=== PATIENT | female | born 1950 | race Hispanic/Latino ===

== ENCOUNTER → 2017-08-03 | Outpatient (CLI) | payer MEDICARE, OTHER ==
[~2017-08-03] MED LIST: GABAPENTIN300 MG PO; HYDROCHLOROTHIA25 MG PO; LISINOPRIL2.5 MG PO; METFORMIN HCL500 MG PO; PANTOPRAZOLE SO40 MG PO; SIMVASTATIN20 MG PO; ZOFRAN ODT4 MG PO
--- NOTE | 2017-08-03 16:27 | Diagnostic Imaging Report ---
Left neck lymph node biopsy 08/03/2017 Pre-Procedure Diagnosis: Left neck mass Post-procedure Diagnosis:Left neck mass Liner Inserter: Jonathan Camarillo Senior Project Leader/Team Lead: None Sedation: None. Heart rate and oxygen saturation were monitored in real-time. Blood pressure was measured in 5 minute increments. 1% lidocaine was used for local anesthesia. Estimate blood loss: <5 mL Blood administered: None Complications: None Implants/Grafts: None Specimen: 22-gauge FNA x4; 18-gauge 2 cm core biopsy x3 Procedure: Informed consent was obtained and the patient placed supine. A timeout was performed. Preliminary ultrasound of the left neck was performed. The left neck was prepped and draped in standard sterile fashion. Using real-time ultrasound guidance a 19-gauge needle was advanced into the left neck hypoechoic lymph node overlying the mandibular angle. An image was stored in the electronic medical record. 4 22-gauge FNA and 3 18-gauge 2 cm core biopsy specimens were obtained, each with images saved in the electronic medical record. Specimens were submitted to pathology. Findings: Hypoechoic left neck lymph node conglomerates measuring up to 2.7 x 1.3 cm in diameter. Impression: Successful left neck lymph node biopsy. This report was generated with voice-recognition technology. Errors in diagnostic medical sonographer can occur. Please interpret accordingly and contact a radiologist if there are any questions regarding the report. Signed by: Dr. Deshawn Camarillo M.D. on 08/03/2017 4:24 PM
--- NOTE | 2017-08-03 16:27 | Diagnostic Imaging Report ---
Left neck lymph node biopsy 08/03/2017 Pre-Procedure Diagnosis: Left neck mass Post-procedure Diagnosis:Left neck mass Vice President Of Product Marketing: Jonathan Camarillo Alcohol And Drug Counselor: None Sedation: None. Heart rate and oxygen saturation were monitored in real-time. Blood pressure was measured in 5 minute increments. 1% lidocaine was used for local anesthesia. Estimate blood loss: <5 mL Blood administered: None Complications: None Implants/Grafts: None Specimen: 22-gauge FNA x4; 18-gauge 2 cm core biopsy x3 Procedure: Informed consent was obtained and the patient placed supine. A timeout was performed. Preliminary ultrasound of the left neck was performed. The left neck was prepped and draped in standard sterile fashion. Using real-time ultrasound guidance a 19-gauge needle was advanced into the left neck hypoechoic lymph node overlying the mandibular angle. An image was stored in the electronic medical record. 4 22-gauge FNA and 3 18-gauge 2 cm core biopsy specimens were obtained, each with images saved in the electronic medical record. Specimens were submitted to pathology. Findings: Hypoechoic left neck lymph node conglomerates measuring up to 2.7 x 1.3 cm in diameter. Impression: Successful left neck lymph node biopsy. This report was generated with voice-recognition technology. Errors in valve inspector can occur. Please interpret accordingly and contact a radiologist if there are any questions regarding the report. Signed by: Dr. Deshawn Camarillo M.D. on 08/03/2017 4:24 PM
== END ==
LOC: US 12:45
PROVIDERS: ATTEND Otolaryngology
DX: R22.1 Localized swelling, mass and lump, neck (principal)
CPT/HCPCS: 10022; 38510; 76942; 88112; 88172; 88173; 88304; 88305

== ENCOUNTER 2018-04-12 05:03 | Observation (INO) | payer MEDICARE, OTHER ==
[2018-04-08 09:10] LABS: BASOPHILS # (AUTO) 0.1 (0.0-0.1); EOSINOPHILS # (AUTO) 0.3 (0.0-0.4); EOSINOPHILS % 2.9 % (0.0-6.0); HEMATOCRIT 42.6 % (34.2-44.1); HEMOGLOBIN 14.2 g/dL (12.0-16.0); LYMPHOCYTES # (AUTO) 3.3 (1.0-3.2); LYMPHOCYTES % 31.8 % (18.0-39.1); MEAN CORPUSCULAR HEMOGLOBIN 29.8 pg (28-32); MEAN CORPUSCULAR HGB CONC 33.3 g/dL (31-35); MEAN CORPUSCULAR VOLUME 89.5 fL (81-99); MONOCYTES # (AUTO) 0.5 (0.2-0.8); MONOCYTES % 5.1 % (4.4-11.3); NEUTROPHILS # (AUTO) 6.1 (2.1-6.9); PLATELET COUNT 341 x10e3/uL (140-360); RED BLOOD COUNT 4.76 x10e6/uL (3.6-5.1); RED CELL DISTRIBUTION WIDTH 13.6 % (11.7-14.4)
[2018-04-08 09:26] LABS: ANION GAP 17.2 mmol/L (8-16); BLOOD UREA NITROGEN 11 mg/dL (7-26); BUN/CREATININE RATIO 13 (6-25); CALCIUM 10.1 mg/dL (8.4-10.2); CARBON DIOXIDE 24 mmol/L (22-29); CHLORIDE 101 mmol/L (98-107); CREATININE, SERUM 0.82 mg/dL (0.57-1.11); EST GLOMERULAR FILTRATION RATE > 60 ML/MIN (60-); GLUCOSE 107 mg/dL (74-118); POTASSIUM 4.2 mmol/L (3.5-5.1); SODIUM 138 mmol/L (136-145)
--- NOTE | 2018-04-08 09:32 | Diagnostic Imaging Report ---
EXAMINATION: PA and lateral views of the chest. COMPARISON: None CLINICAL HISTORY: Preoperative evaluation for parotid surgery DISCUSSION: Lines/tubes: None. Lungs: The lungs are well inflated and clear. No pneumonia or pulmonary edema. Pleura: No pleural effusion or pneumothorax. Heart and mediastinum: The cardiomediastinal silhouette is normal. Bones and soft tissues: No acute bony abnormalities. IMPRESSION: No acute cardiopulmonary abnormalities. Signed by: Dr. Tom Whipple M.D. on 04/08/2018 9:29 AM
[~2018-04-12] VITALS: Ht 157.5 cm; Wt 106.8 kg
[~2018-04-12 05:03] MED LIST changes: +GABAPENTIN400 MG PO
--- OUTSIDE RECORDS SUMMARY | 2018-04-12 05:05 | XMS REPORT ---
Author [facility] Address Unknown Phone Unavailable Care Team Providers Care Cemetery Warden Name Role Phone EVAN ELOY Unavailable Unavailable Payers Payer Name Policy Type Policy Number Effective Date Expiration Date Problems This patient has no known problems. Allergies, Adverse Reactions, Alerts This patient has no known allergies or adverse reactions. Medications This patient has no known medications. Results Test Description Test Time Test Comments Text Results Atomic Results Result Comments CHEST 2 VIEWS 2018-04-08 09:28:00 [facility] [address] [place] [address] Patient Name: NATALIIA MARIE MR #: [id number] : 1950 Age/Sex: 68/F Req #: [id number] Adm Physician: Ordered by: EVAN CHURCH, ELOY CHURCH Report #: [id number] Location: OR Room/Bed: Procedure: [id number] DX/CHEST 2 VIEWS Exam Date: 04/08/18 Exam Time: 0900 REPORT STATUS: Signed EXAMINATION: PA and lateral views of the chest. COMP ARISON: None CLINICAL HISTORY: Preoperative evaluation for parotid surgery DISCUSSION: Lines/tubes: None. Lungs: The lungs are well inflated and clear. No pneumonia or pulmonary edema. Pleura: No pleural effusion or pneumothorax. Heart and mediastinum: The cardiomediastinal silhouette is normal. Bones and soft tissues: No acute bony abnormalities. IMPRESSION: No acute cardiopulmonary abnormalities. Signed by: Dr. Debbie Ray M.D. on 04/08/2018 9:29 AM Dictated By: DEBBIE RAY MD 8 Transcribed By: ADIS on 04/08/18928 COPY TO: ELOY GORDON WITH IMAGE GUIDANCE [place] [address] Patient Name: NATALIIA MARIE MR #: [id number] : 1950 Age/Sex: 67/F Acct #: [id number] Req #: [id number] Adm Physician: Ordered by: ELOY GORDON MD, MD Report #: [id number] Location: Room/Bed: Procedure: [id number] IR/FNA WITH IMAGE GUIDANCE Exam Date: 08/03/17 Exam Time: 1 REPORT STATUS: Signed Left neck lymph node biopsy 08/03/2017 Pre-Procedure Diagnosis: Left neck mass Post-procedure Diagnosis:Left neck mass Assistant Professor Of Theater: Jonathan Camarillo Card Tender: None Sedation: None. Heart rate and oxygen saturation were monitored in real-time. Blood pressure was measured in 5 minute increments. 1% lidocaine was used for local anesthesia. Estimate blood loss: <5 mL Blood administered: None Complications: None Implants/Grafts: None Specimen: 22-gauge FNA x4; 18-gauge 2 cm core biopsy x3 Procedure: Informed consent was obtained and the patient placed supine. A timeout was performed. Preliminary ultrasound of the left neck was performed. The left neck was prepped and draped in standard sterile fashion. Using real-time ultrasound guidance a 19-gauge needle was advanced into the left neck hypoechoic lymph node overlying the mandibular angle. An image was stored in the electronic medical record. 4 22-gauge FNA and 3 18-gauge 2 cm core biopsy specimens were obtained, each with images saved in the electronic medical record. Specimens were submitted to pathology. Findings: Hypoechoic left neck lymph node conglomerates measuring up to 2.7 x 1.3 cm in diameter. Impression: Successful left neck lymph node biopsy. This report was generated with voice-recognition technology. Errors in dyeing machine tender can occur. Please interpret accordingly and contact a radiologist if there are any questions regarding the report. Signed by: Dr. Eloy Camarillo M.D. on 08/03/2017 4:24 PM Dictated By: ELOY CAMARILLO MD Transcribed By: ADIS on 08/03/171623 COPY TO: ELOY GORDON BIOPSY LYMPH NODE [place] [address] Patient Name: NATALIIA MARIE MR #: [id number] : 1950 Age/Sex: 67/F Req #: [id number] [facility] Physician: Ordered by: ELOY GORDON MD, MD Report #: [id number] Location: Room/Bed: Procedure: [id number] IR/BIOPSY LYMPH NODE Exam Date: 08/03/17 Exam Time: 1331 REPORT STATUS: Signed Left neck lymph node biopsy 08/03/2017 Pre-Procedure Diagnosis: Left neck mass Post-procedure Diagnosis:Left neck mass Assistant Professor Of Theater: Jonathan Camarillo Card Tender: None Sedation: None. Heart rate and oxygen saturation were monitored in real-time. Blood pressure was measured in 5 minute increments. 1% lidocaine was used for local anesthesia. Estimate blood loss: <5 mL Blood administered: None Complications: None Implants/Grafts: None Specimen: 22-gauge FNA x4; 18-gauge 2 cm core biopsy x3 Procedure: Informed consent was obtained and the patient placed supine. A timeout was performed. Preliminary ultrasound of the left neck was performed. The left neck was prepped and draped in standard sterile fashion. Using real-time ultrasound guidance a 19-gauge needle was advanced into the left neck hypo echoic lymph node overlying the mandibular angle. An image was stored in the electronic medical record. 4 22-gauge FNA and 3 18-gauge 2 cm core biopsy specimens were obtained, each with images saved in the electronic medical record. Specimens were submitted to pathology. Findings: Hypoechoic left neck lymph node conglomerates measuring up to 2.7 x 1.3 cm in diameter. Impression: Successful left neck lymph node biopsy. This report was generated with voice-recognition technology. Errors in dyeing machine tender can occur. Please interpret accordingly and contact a radiologist if there are any questions regarding the report. Signed by: Dr. Eloy Camarillo M.D. on 08/03/2017 4:24 PM Dictated By: ELOY CAMARILLO MD 162 Transcribed By: ADIS on 08/03/17 1624 COPY TO: ELOY GORDON GUIDANCE FOR BIOPSY [place] [address] Patient Name: NATALIIA MARIE MR #: [id number] : 1950 Age/Sex: 67/F Acct #: [id number] Req #: [id number] Adm Physician: Ordered by: ELOY GORDON MD, MD Report #: [id number] Location: Room/Bed: Procedure: [id number] US/US GUIDANCE FOR BIOPSY Exam Date: 08/03/17 Exam Time: 1331 REPORT STATUS: Signed Left neck lymph node biopsy 08/03/2017 Pre-Procedure Diagnosis: Left neck mass Post-procedure Diagnosis:Left neck mass Assistant Professor Of Theater: Jonathan Camarillo Card Tender: None Sedation: None. Heart rate and oxygen saturation were monitored in real-time. Blood pressure was measured in 5 minute increments. 1% lidocaine was used for local anesthesia. Estimate blood loss: <5 mL Blood administered: None Complications: None Implants/Grafts: None Specimen: 22-gauge FNA x4; 18-gauge 2 cm core biopsy x3 Procedure: Informed consent was obtained and the patient placed supine. A timeout was performed. Preliminary ultrasound of the left neck was performed. The left neck was prepped and draped in standard sterile fashion. Using real-time ultrasound guidance a 19-gauge needle was advanced into the left neck hypoechoic lymph node overlying the mandibular angle. An image was stored in the electronic medical record. 4 22-gauge FNA and 3 18-gauge 2 cm core biopsy specimens were obtained, each with images saved in the electronic medical record. Specimens were submitted to pathology. Findings: Hypoechoic left neck lymph node conglomerates measuring up to 2.7 x 1.3 cm in diameter. Impression: Successful left neck lymph node biopsy. This report was generated with voice-recognition technology. Errors in dyeing machine tender can occur. Please interpret accordingly and contact a radiologist if there are any questions regarding the report. Signed by: Dr. Eloy Camarillo M.D. on 08/03/2017 4:24 PM Dictated By: ELOY CAMARILLO MD [id number] Transcribed By: ADIS on 08/03/17 3045 COPY TO: ELOY GORDON
[2018-04-12] MEDS ORDERED: EPINEPHRINE HCL 1:1000 1ML 1 MG/ML AMP ONE (06:27)
[2018-04-12] MEDS ORDERED: SODIUM CHLORIDE 0.9% 50ML 50 ML ONE (06:28)
--- NOTE | 2018-04-12 10:50 | Operative Report ---
DATE OF PROCEDURE: April 12, 2018 PREOPERATIVE DIAGNOSIS: Left parotid gland mass. POSTOPERATIVE DIAGNOSIS: Left parotid gland mass. PROCEDURE: Left superficial parotidectomy with preservation of facial nerve with nerve integrity monitor (NIM). SIGNIFICANT FINDINGS: Approximately 3-4 cm mass in the inferior portion of the left parotid gland. Frozen section analysis reveals intraparotid lymph node. HYDROELECTRIC MACHINERY MECHANIC HELPER: Ainsley Lyles M.D. ANESTHESIA: General endotracheal tube anesthesia. SPECIMENS REMOVED: Left inferior superficial parotid gland. ESTIMATED BLOOD LOSS: 40 mL. COMPLICATIONS: None. INDICATIONS: Patient is a 68-year-old female with greater than 1-year history of left parotid gland mass, which she believes is enlarging. CT of the neck performed on June 22, 2017, revealed 2.1 cm and 2.6 cm masses in the inferior left parotid gland. Ultrasound-guided FNA biopsy performed on August 03, 2017, revealed findings consistent with Warthin's tumor. On examination, she has an approximately 6-cm mass in the region of the tail of the left parotid gland. She is scheduled for left superficial (possible total) parotidectomy with preservation of facial nerve using nerve integrity monitor (NIM). Risks and complications of the procedure were thoroughly discussed with patient and they include infection, bleeding, scarring, failure to improve, need for additional operations, possibility of malignancy and need for further treatment including further surgery, damage to the facial nerve causing facial paralysis, poor external cosmetic appearance of the incision, sweating of the face when eating, numbness of the ear lobe and face, hematoma and bleeding requiring further surgery, chronic drainage caused by saliva entering the wound, need for blood transfusions, damage to surrounding nerves, blood vessels, and muscles, chronic pain, poor external cosmetic appearance of the incision site. She fully understands and gives consent. PROCEDURE: Patient was taken to the operating room and placed supine on the operating table where general anesthesia was achieved through orotracheal intubation. The paralysis wore off shortly after intubation. Eyes were taped. The electrodes for the nerve integrity monitor were then inserted into the appropriate places (lateral to the left oral commissure, lateral to the left eye and the grounding electrodes in the chest). Injection with 10 mL of 1:100,000 epinephrine without lidocaine was injected into the planned left parotidectomy incision site. The face was prepped and draped in the usual sterile fashion. The table was turned 90 degrees with the left side exposed to the surgeon. This face was prepped and draped in the usual sterile fashion, including a clear drape so that the left face could be visualized during the performance of the operation. The parotidectomy incision was then made on the left side with the vertical portion in the preauricular area extending inferiorly past the ear lobe curving posteriorly and then curving anteriorly along a natural skin crease at least 2 fingerbreadths inferior to the anterior margin of the mandible. This was done with a 15 blade. The lateral fascia of the left parotid gland was identified. The anterior and posterior skin flaps were then elevated along this plane. Dissection was then started inferiorly along the anterior border of the sternocleidomastoid muscle. This was extended superiorly until the main trunk of the facial nerve was identified. This was dissected atraumatically anteriorly until it divided into the main superior and inferior trunks. The mass appeared to be inferior to the inferior-most branches, and so only the inferior trunk was dissected. The inferior-most branch of the inferior trunk was then dissected anteriorly. This was determined to be the marginal mandibular branch as was deemed by stimulating it with the probe connected to the nerve integrity monitor. This moved the lips and lower face. This was dissected anteriorly until it passed the mass. The mass was then removed with a rim of normal parotid gland tissue around the mass. This was removed with the facial nerve branches in full view and was sent for frozen section analysis. Frozen section analysis revealed an intraparotid lymph node measuring approximately 3 cm. No evidence of malignancy was seen. Thorough irrigation was then performed. Any bleeding sites were checked by having the anesthesiologist perform the Valsalva maneuver. Following this, a ALBAN drain was then inserted through a separate stab incision posterior to the parotidectomy incision. This was secured with 2-0 silk. The wound was then repaired with interrupted 4-0 Monocryl in a subcuticular fashion followed by placement of Dermabond surgical adhesive. Drain sponge was then placed at the exit site of the ALBAN drain. Patient was awakened in the operating room, extubated and taken to the recovery room in good condition. Job#: [id number] JESSICA OLIVAREZ
--- NOTE | 2018-04-12 13:30 | NUR ---
PT TO THE FLOOR FROM PACU. PT VITALS WNL. PT DENIES NEEDS AT THIS TIME.
[2018-04-12 13:50] VITALS: BP 137/77
[2018-04-12 14:00] VITALS: BP 137/77
[2018-04-12 16:08] VITALS: BP 128/61
[2018-04-12] MEDS ORDERED: DEXAMETHASONE SOD PHOS INJ 4 MG/ML VIAL ONE (18:02)
[2018-04-12] MEDS ORDERED: LIDOCAINE HCL 2% LOCAL INJ 5 ML SDV VIAL INJ ONE (18:02)
[2018-04-12] MEDS ORDERED: PHENYLEPHRINE HCL 1% 10 MG/ML VIAL ONE (18:02)
[2018-04-12] MEDS ORDERED: SUCCINYLCHOLINE 200 MG/10 ML SYR ONE (18:02)
[2018-04-12] MEDS ORDERED: EPHEDRINE SULFATE INJ 50 MG/10 ML SYR ONE (18:02)
[2018-04-12] MEDS ORDERED: CEFAZOLIN SOD 1 GM VIAL ONE (18:02)
[2018-04-12] MEDS ORDERED: SEVOFLURANE INHAL SOLN 250 ML PEN BTL ONE (18:02)
[2018-04-12] MEDS ORDERED: PROPOFOL IV EMULSION 10 MG/ML 20 ML VIAL ONE (18:02)
[2018-04-12] MEDS ORDERED: ONDANSETRON HCL INJ 2MG/ML 2ML 2 MG/ML VIAL ONE (18:02)
[2018-04-12] MEDS ORDERED: FENTANYL CITRATE/PF 100MCG/2 ML INJ ONE (18:38)
[2018-04-12] MEDS ORDERED: MIDAZOLAM HCL 2 MG/2 ML VIAL ONE (18:38)
[2018-04-12 20:00] VITALS: BP 138/86
[2018-04-13] VITALS: BP 123/58
[2018-04-13 00:44] VITALS: BP 138/86
[2018-04-13 04:00] VITALS: BP 120/56
--- NOTE | 2018-04-13 07:25 | NUR ---
patient sitting up in bed, Alert with no distress, call light in reach, keep monitoring
[2018-04-13 07:36] VITALS: BP 132/71
--- NOTE | 2018-04-13 08:20 | NUR ---
Dr Mcgill had rounds , took the [place] drain off from left neck incision site, pressure dressing on, Intact, no bleeding noted
--- NOTE | 2018-04-13 08:41 | NUR ---
patient discharged home, pressure dressing intact on left neck, denies any pain or SOB , No prescriptions as per Dr Mcgill, patient aware about f/up appointment in 1 week, regular diet and incision site care, her son in the building, walked to front lobby with pt
== END 2018-04-13 08:59 | disposition home or self-care (01) ==
LOC: OR 05:03 → PACU V 10:00 → IMCU 13:54
PROVIDERS: ADMIT Otolaryngology; ATTEND Otolaryngology
DX: D11.0 Benign neoplasm of parotid gland (principal); E11.9 Type 2 diabetes mellitus without complications; K21.9 Gastro-esophageal reflux disease without esophagitis; E78.00 Pure hypercholesterolemia, unspecified; Z79.84 Long term (current) use of oral hypoglycemic drugs; Z87.891 Personal history of nicotine dependence; E66.01 Morbid (severe) obesity due to excess calories; Z68.41 Body mass index [BMI] 40.0-44.9, adult; Z01.810 Encounter for preprocedural cardiovascular examination; Z01.812 Encounter for preprocedural laboratory examination; Z01.811 Encounter for preprocedural respiratory examination
CPT/HCPCS: 36415 ×3; 38724; 42415; 71046; 80048; 82948 ×2; 85025; 88307; 88331; 93005; G0378 ×2; J0171; J0690; J1100; J2001; J2250; J2370; J2405; J2704; 88304

== ENCOUNTER → 2021-10-23 | Day surgery (SDC) | payer MEDICARE, OTHER ==
[~2021-10-23] MED LIST changes: +GABAPENTIN600 MG PO; +GLUCAGON FOR INJ 1 MG VIAL ONE; +HYOSCYAMINE SULFATE 0.5 MG/ML INJ ONE; +LIDOCAINE HCL 2% LOCAL INJ 5 ML SDV VIAL INJ ONE; +MIDAZOLAM HCL 2 MG/2 ML VIAL ONE; +PROPOFOL IV EMULSION 10 MG/ML 20 ML VIAL ONE
[2021-10-23 13:47] LABS: BASOPHILS # (AUTO) 0.1 (0.0-0.1); BASOPHILS % 0.8 % (0.0-1.0); EOSINOPHILS # (AUTO) 0.2 (0.0-0.4); EOSINOPHILS % 2.3 % (0.0-6.0); HEMATOCRIT 44.5 % (34.2-44.1); HEMOGLOBIN 14.8 g/dL (12.0-16.0); LYMPHOCYTES # (AUTO) 2.6 (1.0-3.2); LYMPHOCYTES % 26.4 % (18.0-39.1); MEAN CORPUSCULAR HEMOGLOBIN 30.1 pg (28-32); MEAN CORPUSCULAR HGB CONC 33.3 g/dL (31-35); MEAN CORPUSCULAR VOLUME 90.6 fL (81-99); MONOCYTES # (AUTO) 0.7 (0.2-0.8); MONOCYTES % 7.3 % (4.4-11.3); NEUTROPHILS # (AUTO) 6.2 (2.1-6.9); NEUTROPHILS % 62.9 % (38.7-80.0); PLATELET COUNT 322 x10e3/uL (140-360); RED BLOOD COUNT 4.91 x10e6/uL (3.6-5.1); RED CELL DISTRIBUTION WIDTH 14.1 % (11.7-14.4)
[2021-10-23 17:20] VITALS: BP 112/62
[2021-10-23 17:36] LABS: WBC,FECAL (FECAL LACTOFERRIN) NEGATIVE (NEGATIVE)
== END | disposition home or self-care (01) ==
LOC: OR 13:20
PROVIDERS: ATTEND Internal Medicine Gastroenterology
DX: K29.50 Unspecified chronic gastritis without bleeding (principal); K63.5 Polyp of colon; K52.9 Noninfective gastroenteritis and colitis, unspecified; K31.A11 Gastric intestinal metaplasia without dysplasia, involving the antrum; K20.90 Esophagitis, unspecified without bleeding; K22.89 Other specified disease of esophagus; K21.9 Gastro-esophageal reflux disease without esophagitis; K28.9 Gastrojejunal ulcer, unspecified as acute or chronic, without hemorrhage or perforation; K59.00 Constipation, unspecified; K57.30 Diverticulosis of large intestine without perforation or abscess without bleeding; K44.9 Diaphragmatic hernia without obstruction or gangrene; K62.89 Other specified diseases of anus and rectum; K64.8 Other hemorrhoids; Z71.3 Dietary counseling and surveillance; E11.9 Type 2 diabetes mellitus without complications; I10 Essential (primary) hypertension; E78.5 Hyperlipidemia, unspecified; F17.210 Nicotine dependence, cigarettes, uncomplicated; Z71.6 Tobacco abuse counseling; Z01.810 Encounter for preprocedural cardiovascular examination; Z01.812 Encounter for preprocedural laboratory examination; Z20.822 Contact with and (suspected) exposure to COVID-19; Z79.84 Long term (current) use of oral hypoglycemic drugs; Z79.899 Other long term (current) drug therapy; Z68.37 Body mass index [BMI] 37.0-37.9, adult
CPT/HCPCS: 0223U; 36415 ×2; 43239; 45380; 82948; 83630; 83993; 85025; 87045; 87177; 87324; 87328; 87449; 88304; 88305; 88312; 93005; C9113; J1610; J1980; J2001; J2250; J2704; 45378; 87493; 88342

== ENCOUNTER → 2021-11-25 | Day surgery (SDC) | payer MEDICARE, OTHER ==
[~2021-11-25] MED LIST changes: +FENTANYL CITRATE/PF 100MCG/2 ML INJ ONE; -GLUCAGON FOR INJ 1 MG VIAL ONE; -HYOSCYAMINE SULFATE 0.5 MG/ML INJ ONE; -LIDOCAINE HCL 2% LOCAL INJ 5 ML SDV VIAL INJ ONE; +OR PHACO EYE KIT ONE; +PREOP PHACO EYE KIT ONE; -PROPOFOL IV EMULSION 10 MG/ML 20 ML VIAL ONE
[2021-11-25 10:45] VITALS: BP 110/62
== END | disposition home or self-care (01) ==
LOC: OR 08:32
PROVIDERS: ATTEND Ophthalmology
DX: H25.11 Age-related nuclear cataract, right eye (principal); E78.5 Hyperlipidemia, unspecified; E11.9 Type 2 diabetes mellitus without complications; K21.9 Gastro-esophageal reflux disease without esophagitis; K28.9 Gastrojejunal ulcer, unspecified as acute or chronic, without hemorrhage or perforation; F17.210 Nicotine dependence, cigarettes, uncomplicated; Z79.84 Long term (current) use of oral hypoglycemic drugs; Z79.899 Other long term (current) drug therapy
CPT/HCPCS: 36415; 66984; 82948; J2250; J3010; V2632

== ENCOUNTER → 2021-12-23 | Day surgery (SDC) | payer MEDICARE, OTHER ==
[~2021-12-23] MED LIST changes: +DICYCLOMINE HCL20 MG PO; -FENTANYL CITRATE/PF 100MCG/2 ML INJ ONE; -MIDAZOLAM HCL 2 MG/2 ML VIAL ONE
[2021-12-23 10:56] LABS: BASOPHILS # (AUTO) 0.1 (0.0-0.1); BASOPHILS % 0.9 % (0.0-1.0); EOSINOPHILS # (AUTO) 0.4 (0.0-0.4); EOSINOPHILS % 3.7 % (0.0-6.0); HEMATOCRIT 41.8 % (34.2-44.1); HEMOGLOBIN 13.5 g/dL (12.0-16.0); LYMPHOCYTES % 30.4 % (18.0-39.1); MEAN CORPUSCULAR HEMOGLOBIN 29.9 pg (28-32); MEAN CORPUSCULAR HGB CONC 32.3 g/dL (31-35); MEAN CORPUSCULAR VOLUME 92.7 fL (81-99); MONOCYTES # (AUTO) 0.6 (0.2-0.8); MONOCYTES % 6.4 % (4.4-11.3); NEUTROPHILS # (AUTO) 5.8 (2.1-6.9); NEUTROPHILS % 58.3 % (38.7-80.0); PLATELET COUNT 280 x10e3/uL (140-360); RED BLOOD COUNT 4.51 x10e6/uL (3.6-5.1); RED CELL DISTRIBUTION WIDTH 13.3 % (11.7-14.4)
[2021-12-23 12:25] VITALS: BP 94/54
== END | disposition home or self-care (01) ==
LOC: OR 09:51
PROVIDERS: ATTEND Ophthalmology
DX: H25.12 Age-related nuclear cataract, left eye (principal); E11.9 Type 2 diabetes mellitus without complications; I10 Essential (primary) hypertension; Z79.899 Other long term (current) drug therapy; Z79.84 Long term (current) use of oral hypoglycemic drugs
CPT/HCPCS: 36415; 82948; 85025